=== PATIENT | female | born 1990 | race Caucasian/White ===

== ENCOUNTER 2017-02-19 13:33 | Emergency (ER) | payer OTHER ==
[~2017-02-19 13:33] MED LIST: IBUPROFEN PO; RONDEC-DM ORAL30 ML PO
== END 2017-02-19 13:36 | disposition home or self-care (01) ==
LOC: CFTX 13:33
DX: H10.31 Unspecified acute conjunctivitis, right eye (principal); J30.2 Other seasonal allergic rhinitis; F17.210 Nicotine dependence, cigarettes, uncomplicated; Z90.89 Acquired absence of other organs
CPT/HCPCS: 99283